=== PATIENT | female | born 1940 | race Two or more races ===

== ENCOUNTER 2024-04-25 22:00 | Inpatient (IN) | payer OTHER ==
[~2024-04-25] VITALS: Ht 154.9 cm; Wt 45.4 kg
[2024-04-25] MEDS ORDERED: TOPROL XL25 M1 (22:15)
[2024-04-25] MEDS ORDERED: CARBIDOPA-LEVO1 EAC3 (22:15)
[2024-04-25] MEDS ORDERED: ZOLOFT25 MG (22:15)
[2024-04-25] MEDS ORDERED: METHYLPREDNISOLONE SOD SUCC 40 MG VIAL IM ONE (23:30)
[2024-04-25] MEDS ORDERED: IPRATROPIUM BROMIDE 0.5 MG/2.5 ML AMPUL.NEB IH ONE (23:30)
[2024-04-25] MEDS ORDERED: LEVALBUTEROL HCL 1.25 MG/3 ML SOLUTION IH ONE (23:30)
[2024-04-25] MEDS ORDERED: FAMOtidine 10 MG/ML (4ML VIAL) IV ONE (23:30)
[2024-04-25] MEDS ORDERED: levoFLOXacin IN DEXTROSE 5 % 500MG/100ML PIGGYBAG IV ONE ×2 (23:30→23:34)
[2024-04-25] MEDS ORDERED: FAMOTIDINE/PF 20 MG/2 ML VIAL ONE (23:34)
[2024-04-25] MEDS ORDERED: METHYLPREDNISOLONE SOD SUCC 40 MG VIAL ONE (23:34)
[2024-04-26] MEDS ORDERED: LEVALBUTEROL HCL 1.25 MG/3 ML SOLUTION IH ONE (00:25)
[2024-04-26] MEDS ORDERED: IPRATROPIUM BROMIDE 0.5 MG/2.5 ML AMPUL.NEB IH ONE (00:25)
[2024-04-26 00:53] LABS: HEMATOCRIT 41.8 % (36.0-45.00); HEMOGLOBIN 14.5 g/dL (12.0-15.00); MEAN CELL VOLUME 96.1 fL (80.00-100.00); MEAN CORPUSCULAR HEMOGLOBIN 33.4 pg (27.00-32.0); MEAN CORPUSCULAR HGB CONC 34.7 g/dl (32.0-36.0); PLATELET COUNT 294 K/uL (150-450); RED BLOOD COUNT 4.35 M/uL (4.00-6.00); RED CELL DISTRIBUTION WIDTH 13.2 % (11.5-14.5)
[2024-04-26] MEDS ORDERED: LEVALBUTEROL HCL 0.63 MG/3 ML SOLUTION IH SCH ×2 (01:15→05:00)
[2024-04-26 01:18] LABS: INR 1.09; PROTHROMBIN TIME 11.8 SECONDS (9.0-11.5)
[2024-04-26 01:21] LABS: ALBUMIN 3.9 gm/dL (3.4-5.0); BILIRUBIN TOTAL 0.35 mg/dL (0.3-1.2); CALCIUM 9.4 mg/dL (8.5-10.1); CREATININE SERUM 1.21 mg/dL (0.55-1.02); GFR 42.6; GLOBULINA 4.4 G/DL (2.4-3.5); POTASSIUM 4.67 mEq/L (3.5-5.1); TOTAL PROTEIN 8.3 gm/dL (6.4-8.2)
[2024-04-26 01:39] LABS: D DIMER 1.6 MG/L; PARTIAL THROMBOPLASTIN TIME 29.7 SECONDS (22.0-34.0)
[2024-04-26 01:40] LABS: URINE APPEARANCE Cloudy; URINE BILIRRUBIN Negative (NEGATIVE); URINE BLOOD Trace; URINE COLOR Yellow; URINE GLUCOSE Negative (NEGATIVE); URINE KETONE Trace (NEGATIVE); URINE LEUKOCYTE Negative; URINE NITRATE Negative; URINE UROBILINOGEN 0.2 E.U./dl
[2024-04-26 01:44] LABS: URINE BACTERIA 270.4 uL (0.0-1933); URINE CAST 3.38 uL (0.0-1.40); URINE EPITHELIAL CELLS 98.6 uL (0.0-38.8); URINE RBC 9.5 uL (0.0-20.8); URINE WBC 9.9 uL (0.0-23.2)
[2024-04-26] MEDS ORDERED: OSELTAMIVIR PHOSPHATE 75 MG CAPSULE PO STA (02:37)
[2024-04-26 02:41] LABS: URINE PROTEIN 100 (NEGATIVE)
[2024-04-26] MEDS ORDERED: OSELTAMIVIR PHOSPHATE 75 MG CAPSULE PO ONE (02:57)
[2024-04-26 03:49] LABS: ABG PH 7.401 (7.35-7.45); ABG PO2 56.6 mmHg (80-100); ABG pCO2 37.1 mmHg (35-45); BASE EXCESS -1.8 mmol/l; BICARBONATE 22.5 mmol/l (23-25); SaO2 88.9 %; Tco2 23.6 mmol/l; allen test SATISFACTORY; o2 21 %; puncture site RADIAL LEFT
[2024-04-26] MEDS ORDERED: levoFLOXacin IN DEXTROSE 5 % 5 MG/ML PIGGYBAG IV SCH (10:35)
[2024-04-26] MEDS ORDERED: METHYLPREDNISOLONE SOD SUCC 40 MG VIAL IV SCH (10:37)
[2024-04-26] MEDS ORDERED: FAMOTIDINE/PF 20 MG in 0.9 % SODIUM CHLORIDE 8 ML IV PUSH SCH ×2 (10:40→21:00)
[2024-04-26] MEDS ORDERED: ACETAMINOPHEN 325 MG TABLET PO PRN (10:45)
[2024-04-26] MEDS ORDERED: 0.9 % SODIUM CHLORIDE 1,000 ML IV SCH (10:45)
[2024-04-26] MEDS ORDERED: CARBIDOPA/LEVODOPA 25/100 UDTAB PO SCH (10:51)
[2024-04-26] MEDS ORDERED: METOPROLOL TARTRATE 25 MG TABLET PO SCH (10:52)
[2024-04-26 11:14] VITALS: BP 107/51
[2024-04-26] MEDS ORDERED: METHYLPREDNISOLONE SOD SUCC 40 MG VIAL ONE (11:52)
[2024-04-26] MEDS ORDERED: levoFLOXacin IN DEXTROSE 5 % 5 MG/ML PIGGYBAG IV ONE (11:53)
[2024-04-26] MEDS ORDERED: FAMOTIDINE/PF 20 MG/2 ML VIAL ONE ×2 (11:53→20:05)
[2024-04-26 13:40] LABS: ALBUMIN 3.3 gm/dL (3.4-5.0); CREATININE SERUM 0.98 mg/dL (0.55-1.02); GFR 54.33; PHOSPHOROUS 3.5 mg/dL (2.5-4.9); POTASSIUM 4.4 mEq/L (3.5-5.1)
[2024-04-26] MEDS ORDERED: ACETAMINOPHEN 500 MG GEL..CAP PO PRN (17:00)
[2024-04-26 19:05] VITALS: BP 124/69
[2024-04-27 02:08] VITALS: BP 147/80; O2SAT 96
[2024-04-27 08:44] VITALS: BP 135/70; O2SAT 96
[2024-04-27] MEDS ORDERED: OSELTAMIVIR PHOSPHATE 30MG CAP PO NR (10:15)
[2024-04-27 12:49] LABS: HEMATOCRIT 36.3 % (36.0-45.00); HEMOGLOBIN 12.3 g/dL (12.0-15.00); MEAN CELL VOLUME 96.9 fL (80.00-100.00); MEAN CORPUSCULAR HEMOGLOBIN 32.9 pg (27.00-32.0); MEAN CORPUSCULAR HGB CONC 33.9 g/dl (32.0-36.0); PLATELET COUNT 274 K/uL (150-450); RED BLOOD COUNT 3.74 M/uL (4.00-6.00); RED CELL DISTRIBUTION WIDTH 12.9 % (11.5-14.5)
[2024-04-27 13:27] LABS: ALBUMIN 2.9 gm/dL (3.4-5.0); BILIRUBIN TOTAL 0.3 mg/dL (0.3-1.2); CALCIUM 8.7 mg/dL (8.5-10.1); CREATININE SERUM 0.97 mg/dL (0.55-1.02); GFR 54.98; GLOBULINA 3.9 G/DL (2.4-3.5); POTASSIUM 3.86 mEq/L (3.5-5.1); TOTAL PROTEIN 6.8 gm/dL (6.4-8.2)
[2024-04-27] MEDS ORDERED: PANTOPRAZOLE SODIUM 40 MG TABLET.DR PO SCH (17:57)
[2024-04-27] MEDS ORDERED: SERTRALINE HCL 100 MG TABLET PO SCH (17:58)
[2024-04-27] MEDS ORDERED: PANTOPRAZOLE SODIUM 40 MG TABLET.DR PO ONE (18:21)
[2024-04-27 19:35] VITALS: BP 114/74; O2SAT 96
[2024-04-27] MEDS ORDERED: OSELTAMIVIR PHOSPHATE 30MG CAP PO SCH (21:00)
[2024-04-28 00:51] VITALS: BP 145/79; O2SAT 98
[2024-04-28 08:41] VITALS: BP 136/61; O2SAT 97
[2024-04-28] MEDS ORDERED: FAMOTIDINE/PF 20 MG in 0.9 % SODIUM CHLORIDE 8 ML IV PUSH SCH (09:00)
[2024-04-28 19:07] VITALS: BP 136/76
[2024-04-29 01:39] VITALS: BP 144/82; O2SAT 96
[2024-04-29 10:08] VITALS: BP 163/85; O2SAT 98
[2024-04-29 15:23] LABS: ABG PH 7.371 (7.35-7.45); ABG PO2 66.7 mmHg (80-100); ABG pCO2 42.1 mmHg (35-45); BASE EXCESS -1.4 mmol/l; BICARBONATE 23.9 mmol/l (23-25); SaO2 92.2 %; Tco2 25.1 mmol/l; allen test SATISFACTORY; o2 21 %; puncture site RADIAL RIGHT
[2024-04-29] MEDS ORDERED: ACETAMINOPHEN 500 MG GEL..CAP PO SCH (17:00)
[2024-04-29 18:00] VITALS: BP 132/64; O2SAT 96
[2024-04-30 01:10] VITALS: BP 150/83; O2SAT 99
[2024-04-30 10:13] VITALS: BP 165/79; O2SAT 98
[2024-04-30 18:20] VITALS: BP 150/77; O2SAT 97
== END 2024-04-30 22:10 | disposition home or self-care (01) | DRG 194 ==
LOC: ER 22:02 → SEC-K 04-26 11:10 → MEDJ 04-26 11:10
PROVIDERS: General Practice; Student in an Organized Health Care Education/Training Program; ADMIT Internal Medicine; ATTEND Internal Medicine
DX: J10.00 Influenza due to other identified influenza virus with unspecified type of pneumonia (principal); N17.9 Acute kidney failure, unspecified; E86.0 Dehydration; I10 Essential (primary) hypertension; G20.A1 Parkinson's disease without dyskinesia, without mention of fluctuations; E03.9 Hypothyroidism, unspecified